=== PATIENT | male | born 1935 | race Caucasian/White ===

== ENCOUNTER → 2016-09-30 | Day surgery (SDC) | payer MEDICARE ==
[~2016-09-30] VITALS: Ht 167.6 cm; Wt 80.8 kg
[~2016-09-30] MED LIST: ACETAMINOPHEN 325 MG TAB PO PRN; ALLO300T2 PO; ALLOPURINOL 300 MG TAB PO SCH; CHLORHEXIDINE GLUCONATE 2 % 1 PACK (2 CLOTHS) TOPICAL PRN; DO NOT ADM ANY ANTICOAGULANT DRUGS PRN; FAMOTIDINE 20 MG/2 ML VIAL ONE; INSULIN DETEMIR 100 UNITS/ML VIAL SQ SCH; INSULIN HUMAN REGULAR 1,000 UNITS/10 ML VIAL ONE; INSULIN HUMAN REGULAR 1,000 UNITS/10 ML VIAL SQ PRN; LACTATED RINGER'S 1000 ML INJ 1,000 ML IV SCH; LACTATED RINGER'S 1000 ML IV PRN; LEVEMIR SQ; LISI-515 PO; LISINOPRIL 20 MG TAB PO SCH; METO25TA3 PO; METOPROLOL TARTRATE 25 MG TAB PO PRN; METOPROLOL TARTRATE 25 MG TAB PO SCH; OFLOXACIN 0.3% OPTH SOLN 5 ML BTL LEFT EAR ONE; PANTOPRAZOLE SOD 40 MG DELAYED RELEASE TAB PO SCH; PILL SPLITTER OTHER PRN; POVIDONE IODINE 5% (ANTISEPSIS KIT) 4 APPLICATIONS EACH NARE PRN; PRAV80TA PO; PRAVASTATIN SOD 80 MG TAB PO SCH; PROPOFOL 200 MG/20 ML AMP IV ONE; PROT40TA PO; SODIUM CHLORID 0.9% 500 ML IV PRN; TRAM50TA PO; XARE10TA PO
[2016-09-30 08:13] VITALS: BP 146/71; PULSE 68; RESP 18; TEMP 97.7; O2SAT 98
--- NOTE | 2016-09-30 08:50 | EKG ---
Date Performed: 09/30/2016 Time Performed: 07:54:37 PTAGE: 81 years EKG: Sinus rhythm WITH FIRST DEGREE AV BLOCK RIGHT BUNDLE BRANCH BLOCK ABNORMAL ECG PREVIOUS TRACING : 05/06/2013 05.33 DOCTOR: Adams Vidal Interpretating Date/Time 09/30/2016 08:49:32
[2016-09-30 11:20] VITALS: BP 131/63; PULSE 74; RESP 18; TEMP 97.6; O2SAT 100
--- NOTE | 2016-10-21 11:32 | MP ---
cc: MATA BREAUX M.D. DATE OF SURGERY: 09/30/[address] Mata Breaux PREOPERATIVE DIAGNOSIS 1. Eustachian tube dysfunction. 2. Left middle ear effusion. 3. Left conductive hearing loss. POSTOPERATIVE DIAGNOSIS 1. Eustachian tube dysfunction. 2. Left middle ear effusion. 3. Left conductive hearing loss. OPERATION PERFORMED Left myringotomy and placement of pressure equalizing tube. INDICATIONS The indications are documented in the history and physical. DESCRIPTION OF OPERATION The patient was taken to OR #2 and placed in the supine position. Following induction of general anesthesia and intubation the left ear was examined under the microscope and cleaned a curet. A myringotomy was made in the posterior inferior quadrant and the tip was aspirated of a serous effusion. A T-type pressure equalizing tube was advanced in through the myringotomy. The canal was filled with Floxin otic drops and cotton ball placed in the meatus. The procedure was terminated. The patient was reversed from anesthesia and taken to Recovery in good condition. No complications. No blood loss. MD GYPSY Manzano/LAUREL /5:30 PM /11:31 AM
== END | disposition home or self-care (01) ==
LOC: HSDC 07:17
PROVIDERS: ATTEND Otolaryngology
DX: H69.92 Unspecified Eustachian tube disorder, left ear (principal); H90.2 Conductive hearing loss, unspecified; I10 Essential (primary) hypertension; E78.5 Hyperlipidemia, unspecified; E11.9 Type 2 diabetes mellitus without complications; K21.9 Gastro-esophageal reflux disease without esophagitis
CPT/HCPCS: 00126; 69436; 82948; 93005; J1815; J7120